=== PATIENT | female | born 1955 | race Caucasian/White ===

== ENCOUNTER → 2017-10-13 | Outpatient (CLI) | payer BC ==
[~2017-10-13] MED LIST: ASCO-182 PO; ASPI-1441 PO; DIA5 PO; DOCU-416 PO; EYE15DRO2 OU; FA/M1TAB27 PO; FURO-45 PO; HYDR-6016 PO; IBUP-56 PO; LANS30CA70 PO; LOR5 PO; MOD PO; NAPR220C12 PO; NAPR500T75 PO; ONDA8TAB94 PO; OXYC-854 PO; OXYC-865 PO; PER PO; POTA20TA94 PO; SODI100G4 DT; SUPPLEMENT PO; TRAM-420 PO; TRIA1CAP86 PO; VALA500T63 PO; ZIA10 PO
--- NOTE | 2017-10-13 16:54 | RADIOLOGY IMAGING REPORT ---
FACILITY: [facility] PATIENT NAME: Dee Bragg : 1955 MR: [id number] V: [id number] EXAM DATE: ORDERING PHYSICIAN: ROCKY NOLASCO TECHNOLOGIST: Location: [facility] Patient: Dee Bragg : 1955 Visit/Account:[id number] Date of Sevice: 10/13/2017 KIDNEYS Indication: Acute renal insufficiency with history of nephrolithiasis. Procedure: There has been satisfactory grayscale ultrasonic evaluation of the kidneys and bladder. Comparison: Renal ultrasound March 24, 2014 Findings: Right side: The right kidney measures 10.9 cm x 3.7 cm x 3.6 cm in its sagittal, transverse and AP dimensions. Th e right kidney shows no hydronephrosis or solid masses. There are no calculi. Left side: The left kidney measures 9.9 cm x 3.4 cm x 3.0 cm in its sagittal, transverse and AP dimensions. The left kidney there is no finding of a solid mass or nephrolithiasis in the left kidney. The previousl y described focus of increased echotexture is not well seen today. Bladder: Lateral unremarkable. IMPRESSION: 1. Normal kidneys bilaterally without findings of hydronephrosis or nephrolithiasis. 2. Normal bladder. Report Dictated By: Paul Dove MD at 10/13/2017 4:45 PM Report E-Signed By: Paul Dove MD at 10/13/2017 4:49 PM WSN:[id number]
== END ==
LOC: US 02:50
PROVIDERS: ATTEND Family Medicine
DX: N17.9 Acute kidney failure, unspecified (principal)
CPT/HCPCS: 76705

== ENCOUNTER 2018-05-02 20:12 | Emergency (ER) | payer BC ==
--- NOTE | 2018-05-02 20:20 | ER Report ---
History and Physical Time Seen By MD: 20:19 HPI/ROS CHIEF COMPLAINT: Possible DVT HISTORY OF PRESENT ILLNESS: This is a 62-year-old female who presents to the emergency department for possible DVT. Patient states that since February she's had multiple sessions of vein stripping in both lower extremities. Patient does have varicose veins. Patient states tonight she was walking and experienced some left calf tenderness, she noted there was a very firm spot was slightly raised and red. The patient became concerned with her recent history of vein stripping decided to come in for further evaluation. She denies chest pain or shortness of breath. No chills, no aches. No nausea or vomiting. REVIEW OF SYSTEMS: Constitutional: No fever, no chills. Eyes: No discharge. ENT: No sore throat. Cardiovascular: No chest pain, no palpitations. Respiratory: No cough, no shortness of breath. Gastrointestinal: No abdominal pain, no vomiting. Genitourinary: No hematuria. Musculoskeletal: As above. Skin: As above. Neurological: No headache. Allergies: Coded Allergies: adhesive tape (Verified Allergy, Intermediate, SKIN BLISTERING, 02/05/16) prednisone (Verified Allergy, Intermediate, GENERALIZED SWELLING, 02/05/16) Home Meds Reported Medications [prevadent] No Conflict Check 05/02/18 Multivit-Min/Iron Fum/Folic AC (Qjobs-Mpiqljx-Zrcdoxrg Tablet) 7.5 Mg Iron-400 Mcg Tablet 05/02/18 Naproxen Sodium (ALEVE) 220 Mg Capsule, 220-440 MG PO TID Y for PAIN/HEADACHE, CAPSULE 02/05/16 Eye Lubricant Combination No.1 (FRESHKOTE) 15 Ml Drops, 1 DROP OU BID 05/25/13 Amiloride/Hctz (AMILORIDE HCL-HCTZ 5-50 MG TAB) 1 Each Tab, 1 EACH PO BID 05/25/13 Valacyclovir Hcl (VALACYCLOVIR) 500 Mg Tablet, 500 MG PO BID 05/25/13 Fa/Mv,Ca,Fe,Min/Lycopene/Lut (Centrum Tablet) 1 Tab Tablet, 1 TAB PO DAILY 12/26/07 Discontinued Reported Medications Potassium Chloride (POTASSIUM CHLORIDE) 20 Meq Tab.er.prt, 20 MEQ PO QDAY 05/25/13 Furosemide (FUROSEMIDE) 20 Mg Tablet, 1 TAB PO DAILY 05/25/13 Docusate Sodium (COLACE) 100 Mg Capsule, 100 MG PO BID 05/25/13 Sodium Fluoride (PREVIDENT 5000) 100 Ml Gel..ml., 100 ML DT BID 05/25/13 Lansoprazole (Prevacid) 30 Mg Capsule.dr, 30 MG PO QDAY 09/05/07 Past Medical/Surgical History The patient has a past medical and surgical history of migraines, hypertension, pneumonia, chronic constipation, colonoscopy, GERD, hiatal hernia, kidney stones , stone basket, D&C, miscarriage, precancer cells of the cervix, back problems, arthritis, fracture of the radius and ulna, herniated disc, cyst removal, sclerotherapy and laser vein removal. Reviewed Nurses Notes: Yes Hx Smoking: No Smoking Status: Never Smoker Exposure to Second Hand Smoke?: No Hx Alcohol Use: Yes Constitutional Vital Sign - Last 24 Hours 05/02/18 05/02/18 05/02/18 05/02/18 20:16 20:18 20:27 20:42 Temp 98.7 Pulse 80 76 71 Resp 16 B/P (MAP) 117/82 117/82 (94) Pulse Ox 93 92 92 O2 Delivery Room Air 05/02/18 05/02/18 05/02/18 05/02/18 20:57 21:12 21:27 21:42 Pulse 75 73 69 68 Pulse Ox 89 92 92 91 05/02/18 05/02/18 21:57 22:05 Pulse 69 B/P (MAP) 98/66 (77) Pulse Ox 92 Physical Exam General Appearance: The patient is alert, has no immediate need for airway protection and no signs of toxicity. Eyes: Pupils equal and round no pallor or injection. ENT, Mouth: Mucous membranes are moist. Respiratory: There are no retractions, lungs are clear to auscultation. Cardiovascular: Regular rate and rhythm, no murmurs, clicks or rubs. Gastrointestinal: Abdomen is soft and non tender, no masses, bowel sounds normal. Neurological: Alert and oriented 4. Moving all extremities. Following all commands. No focal neuro deficits. Skin: Warm, with an area of erythema and firmness to the left medial calf. No rashes. Musculoskeletal: Neck is supple non tender. Extremities are nontender, nonswollen and have full range of motion. DIFFERENTIAL DIAGNOSIS: After history and physical exam differential diagnosis was considered for leg swelling including but not limited to hypoalbuminemia, congestive heart failure, cor pulmonale, chronic venous stasis and DVT. Medical Decision Making EKG/Imaging Imaging EXAMINATION: Unilateral lower extremity deep vein duplex Doppler ultrasound HISTORY: Calf tenderness. History of vein stripping. COMPARISON: None. FINDINGS: Grayscale compression, duplex and color Doppler interrogation of the left lower extremity deep veins from common femoral vein to proximal calf was performed. The greater saphenous vein in the ipsilateral proximal thigh was evaluated using similar technique. Left lower extremity: Common femoral vein: Negative. Femoral vein: Negative. Deep femoral vein: Negative. Popliteal vein: Negative. Visualized deep calf veins: Negative. Greater saphenous vein in the proximal thigh: Negative. Popliteal fossa: Negative. Waveforms: Normal respiratory phasicity. Other findings: There is thrombosis of 2 superficial veins at the medial calf just below the knee. IMPRESSION: No evidence of deep venous thrombosis of the left lower extremity. Thrombosis of 2 superficial veins in the medial left calf just below the knee in the region of noted redness. Report Dictated By: Brayan Koehler MD at 05/02/2018 9:49 PM Report E-Signed By: Brayan Koehler MD at 05/02/2018 9:52 PM WSN:[id number] ED Course/Re-evaluation ED Course The patient was admitted to room. A history and physical were obtained. Differential diagnoses were considered. A venous ultrasound of the left lower extremity showing no DVT, only to superficial clots and superficial veins. I did review these results with the patient and her did explain to him that the superficial clots to not require anticoagulation at this time, she can apply a warm compress to the effected area take ibuprofen or Tylenol 3 for the pain. I also instructed patient follow up with Dr. Covington in 1-2 weeks for reevaluation, return to the ER for any other concerns or worsening symptoms. Patient and her were in agreement with the care and discharged home. Decision to Disposition Date: May 02, 2018 Decision to Disposition Time: 21:55 Depart Departure Latest Vital Signs Vital Signs Date Time Temp Pulse Resp B/P (MAP) Pulse Ox O2 Delivery O2 Flow Rate FiO2 05/02/18 22:05 98/66 (77) 05/02/18 21:57 69 92 05/02/18 20:16 98.7 16 Room Air Impression: Primary Impression: Acute superficial venous thrombosis of left lower extremity Condition: Improved Disposition: HOME OR SELF-CARE Referrals: ROCKY NOLASCO DO (PCP) LESVIA GARCIA MD 1 Week Patient Instructions: Leg Pain (ED) Additional Instructions: There is no evidence of a DVT on the ultrasound, there is a superficial clot, it does not require anticoagulation. You can apply warm packs to the affected area. Take Ibuprofen or Tylenol as needed for discomfort. Follow up with Dr. Garcia in 1-2 weeks for reevaluation. Return to the ED for any other concerns or worsening symptoms. HANK RUIZ TELECOM ENGINEER-BC May 02, 2018 20:19
[2018-05-02] MEDS ORDERED: [UNRECOGNIZED DRUG - OTHER] (20:48)
[2018-05-02] MEDS ORDERED: MULT-40 (20:48)
--- NOTE | 2018-05-02 21:55 | RADIOLOGY IMAGING REPORT ---
FACILITY: [facility] - [place] PATIENT NAME: Dee Bragg : 1955 MR: [id number] V: [id number] EXAM DATE: ORDERING PHYSICIAN: HANK RUIZ TECHNOLOGIST: Location: [facility] Patient: Dee Bragg : 1955 Visit/Account:[id number] Date of Sevice: 05/02/2018 EXAMINATION: Unilateral lower extremity deep vein duplex Doppler ultrasound HISTORY: Calf tenderness. History of vein stripping. COMPARISON: None. FINDINGS: Grayscale compression, duplex and color Doppler interrogation of the left lower extremity deep veins from common femoral vein to proximal calf was performed. The greater saphenous vein in the ipsilatera l proximal thigh was evaluated using similar technique. Left lower extremity: Common femoral vein: Negative. Femoral vein: Negative. Deep femoral vein: Negative. Popliteal vein: Negative. Visualized deep calf veins: Negative. Greater saphenous vein in the proximal thigh: Negative. Popliteal fossa: Negative. Waveforms: Normal respiratory phasicity. Other findings: There is thrombosis of 2 superficial veins at the medial calf just below the knee. IMPRESSION: No evidence of deep venous thrombosis of the left lower extremity. Thrombosis of 2 superficial veins in the medial left calf just below the knee in the region of noted redness. Report Dictated By: Brayan Koehler MD at 05/02/2018 9:49 PM Report E-Signed By: Brayan Koehler MD at 05/02/2018 9:52 PM WSN:[id number]
[2018-05-02 22:05] VITALS: BP 98/66
== END 2018-05-02 22:07 | disposition home or self-care (01) ==
LOC: ER 20:39
DX: I82.812 Embolism and thrombosis of superficial veins of left lower extremity (principal)
CPT/HCPCS: 99284

== ENCOUNTER → 2018-11-05 | Outpatient (CLI) | payer BC ==
[~2018-11-05] MED LIST changes: +MULT-40; +[UNRECOGNIZED DRUG - OTHER]
--- NOTE | 2018-11-05 10:22 | RADIOLOGY IMAGING REPORT ---
FACILITY: [facility] PATIENT NAME: Dee Bragg : 1955 MR: [id number] V: [id number] EXAM DATE: ORDERING PHYSICIAN: ROCKY NOLASCO TECHNOLOGIST: Location[place] [facility] [place] Patient: Dee Bragg : 1955 Visit/Account:[id number] Date of Sevice: 11/05/2018 DEXA Scan Clinical history: Screening. Comparison: 11/06/2013. LUMBAR SPINE: The bone mineral density (BMD) measured from L1-L4 correlates with a Z-score of 2.6 and a T-score of 1.4 which is within normal range as defined by the World Health Organization. The corresponding risk of fracture in the lumbar spine is not increased compared with a young adult r eference population. This value has increased by 2.6 % since the prior study. More than 5% change i s considered significant. HIP: Bone mineral density (BMD) measured in the Left Total Hip region correlates with a Z-score of 0.1 and a T-score of -0.9. The T-score of the femoral neck is -0.7. The lower of the two T-scores is within normal range as defined by the World Health Orga nization. The corresponding risk of fracture in the hip is not increased compared with a young adult reference population. This value has decreased by 6.3 % since the prior study. More than 5% change is considered significant. Bone mineral density (BMD) measured in the Left Femoral Neck region measures 0.943 g/cm?. IMPRESSION: 1. Lumbar spine: Within normal range. There has been no significant change in the bone mineral den sity since the previous exam. 2. Left Total Hip: Within lower normal range. 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 The next DEXA scan of this patient should include the following sites: L1-L4 and Left hip. FRAX? WHO Fracture Risk Assessment Tool link: <http://www.shef.ac.uk/FRAX/tool.jsp?[email or web address]> PLEASE NOTE: 1) The World Health Organization defines low BMD as follows: T-score Normal > -1 Osteopenia < -1 and > -2.5 Osteoporosis < -2.5 without fractures Established osteoporosis < -2.5 with fractures 2) In general, you may wish to consider: Diagnosis Treatment Follow-up DEXA Normal BMD Prevention 2-3 years Osteopenia Prevention/therapy 1-2 years Osteoporosis Therapy Yearly 3) Fracture risk estimated from the T-score is more accurate for vertebral fractures (often spontane ous) than for hip fractures. Report Dictated By: Paco Wolf MD at 11/05/2018 10:14 AM Report E-Signed By: Paco Wolf MD at 11/05/2018 10:16 AM WSN:[email or web address]
== END ==
LOC: RAD 03:44
PROVIDERS: ATTEND Family Medicine
DX: Z13.820 Encounter for screening for osteoporosis (principal); N95.8 Other specified menopausal and perimenopausal disorders
CPT/HCPCS: 77080